=== PATIENT | male | born 1990 | race Two or more races ===

== ENCOUNTER 2023-09-07 16:28 | Emergency (ER) | payer OTHER ==
[~2023-09-07] VITALS: Ht 180.3 cm; Wt 82.6 kg
[2023-09-07 16:55] VITALS: TEMP 98
[2023-09-07 17:34] VITALS: BP 135/82; O2SAT 98
== END 2023-09-07 17:34 | disposition home or self-care (01) ==
LOC: ER 16:38
DX: R56.9 Unspecified convulsions (principal)